=== PATIENT | female | born 1985 | race African-American/Black ===

== ENCOUNTER 2022-11-08 15:30 | Inpatient (IN) | payer BC ==
[~2022-11-08 15:30] MED LIST: Bupivacaine HCl 0.5%/Epinephrine 1:200,000/PF 30 ml Vial ONE
[2022-11-08 16:26] LABS: Fetal Membranes Rupture RUPTURE DETECTED (No Rupture)
[2022-11-08] MEDS ORDERED: Methylergonovine 0.2 MG/ML VIAL IM PRN (16:48)
[2022-11-08] MEDS ORDERED: hydrALAZINE 20 MG/ML VIAL SLOW IVP PRN (16:48)
[2022-11-08] MEDS ORDERED: Ibuprofen 800 MG TAB PO PRN (16:48)
[2022-11-08] MEDS ORDERED: Butorphanol Tartrate 1 MG/ML VIAL SLOW IVP PRN (16:48)
[2022-11-08] MEDS ORDERED: Ondansetron PF 4 MG/2 ML Vial IVP PRN (16:48)
[2022-11-08] MEDS ORDERED: Carboprost 250 MCG/ML AMP IM PRN (16:48)
[2022-11-08] MEDS ORDERED: Misoprostol 200 MCG TAB PR PRN (16:48)
[2022-11-08] MEDS ORDERED: Promethazine HCl 25 MG/ML VIAL IM PRN (16:48)
[2022-11-08] MEDS ORDERED: Lidocaine 1% (PF) 30 ML VIAL SC PRN (16:48)
[2022-11-08] MEDS ORDERED: NS w/ Oxytocin 30 units 500 ML IV SCH ×2 (17:00)
[2022-11-08] MEDS ORDERED: Betamet Acet/Betamet Na Ph 30 MG/5 ML VIAL ONE (17:58)
[2022-11-08] MEDS ORDERED: Betamet Acet/Betamet Na Ph 30 MG/5 ML VIAL IM SCH (18:00)
[2022-11-08 18:24] LABS: Hemoglobin 11.8 g/dL (12.0-15.5); Mean Corpuscular HGB CONC 33.9 g/dL (32.0-36.0); Mean Corpuscular Hemoglobin 24.9 pg (27.0-33.0); Mean Corpuscular Volume 73.4 fl (81.6-98.3); Mean Platelet Volume 11.4 fl (7.4-10.4); Platelet Count 315 10x3/uL (150-450); RBC Distribution Width 14.2 % (11.5-14.5); Red Blood Cell (RBC) Count 4.74 10x6/uL (3.90-5.03)
[2022-11-08 18:55] LABS: HBSAg Index 0.14 S/CO (0-0.99); Hep B Surf Ag Non-Reactive S/CO (NonReactive); Syphilis Antibody Nonreactive (Nonreactive); Syphilis Antibody Index 0.03 S/CO (<1.00 Non-Reactive)
[2022-11-08 19:06] VITALS: BMI 28.3
[2022-11-08 19:30] LABS: SARS-CoV-2 NAA Rapid Test Not Detected (NotDetected)
[2022-11-08] MEDS ORDERED: Penicillin G Potassium 5 MILL.UNITS in Sodium Chloride 0.9% 100 ML IVPB SCH (20:00)
[2022-11-08] MEDS ORDERED: Penicillin G Potassium 5 MILL.UNITS VIAL ONE (20:04)
[2022-11-08] MEDS: Lactated Ringer's 1,000 ML IV SCH (20:25)
[2022-11-09] MEDS ORDERED: Fentanyl 2 mcg/Bup 0.1% Cadd 100 ML ONE
[2022-11-09] MEDS ORDERED: Fentanyl 100 MCG/2 ML VIAL ONE (00:13)
[2022-11-09] MEDS ORDERED: Fentanyl 2 mcg/Bupivacaine 0.1% Cassette 100 ML EPIDURAL SCH (01:00)
[2022-11-09] MEDS ORDERED: Moisturizing Cream (Eucerin) 113 GM JAR TOP PRN (01:00)
[2022-11-09] MEDS ORDERED: Ondansetron PF 4 MG/2 ML Vial IVP PRN ×2 (01:00→03:09)
[2022-11-09] MEDS ORDERED: Acetaminophen 325 MG TAB PO PRN (01:00)
[2022-11-09] MEDS ORDERED: Promethazine HCl 25 MG/ML VIAL IM PRN (01:00)
[2022-11-09] MEDS ORDERED: Naloxone HCl 0.4 mg/ml Vial IVP PRN ×2 (01:00)
[2022-11-09] MEDS ORDERED: diphenhydrAMINE 50 MG/ML VIAL IVP PRN (01:00)
[2022-11-09] MEDS ORDERED: Communication Order-Pharmacy FS SCH (01:00)
[2022-11-09] MEDS ORDERED: ePHEDrine Sulfate 50 MG/10 ML VIAL SLOW IVP PRN (01:00)
[2022-11-09] MEDS ORDERED: Lactated Ringer's 500 ML IV PRN (01:00)
[2022-11-09] MEDS ORDERED: Magnesium Sulfate 20 gm/500 ml 20 GM/500 ML BAG ONE (01:12)
[2022-11-09] MEDS ORDERED: Labetalol HCl 100 MG/20 ML VIAL SLOW IVP PRN ×3 (01:28→03:09)
[2022-11-09] MEDS ORDERED: Calcium Gluc 4.6 MEQ/10 ML (100 MG/ML) SLOW IVP PRN ×2 (01:28→03:09)
[2022-11-09] MEDS ORDERED: Lorazepam 2 MG/ML VIAL SLOW IVP PRN ×2 (01:28→03:17)
[2022-11-09] MEDS: Penicillin G 2.5 MILL.units 2.5 MILL.UNITS in Premix Bag 1 BAG IVPB SCH ×3 (01:28→16:42)
[2022-11-09] MEDS ORDERED: hydrALAZINE 20 MG/ML VIAL SLOW IVP PRN ×5 (01:28→03:09)
[2022-11-09] MEDS ORDERED: Magnesium Sulfate 20 gm/500 ml 20 GM/500 ML BAG IVPB SCH ×2 (01:30→03:15)
[2022-11-09] MEDS ORDERED: Misoprostol 200 MCG TAB VAG PRN (03:09)
[2022-11-09] MEDS ORDERED: Milk Of Magnesia 30 ML UDCUP PO PRN (03:09)
[2022-11-09] MEDS ORDERED: Boostrix 0.5 ML (Tdap) VIAL (>/=7 yrs of age) IM ONE (03:09)
[2022-11-09] MEDS ORDERED: Benzocaine-Menthol 82.5 ML CAN TOP PRN (03:09)
[2022-11-09] MEDS ORDERED: diphenhydrAMINE 25 MG CAP PO PRN (03:09)
[2022-11-09] MEDS ORDERED: Lanolin Ointment 7 GM TUBE TOP PRN (03:09)
[2022-11-09] MEDS ORDERED: Preparation H Ointment 28 GM TUBE PR PRN (03:09)
[2022-11-09] MEDS ORDERED: Bisacodyl 10 MG SUPP PR PRN (03:09)
[2022-11-09] MEDS ORDERED: NS w/ Oxytocin 30 units 500 ML IV SCH (03:15)
[2022-11-09 03:54] LABS: Mean Corpuscular HGB CONC 33.8 g/dL (32.0-36.0); Mean Corpuscular Hemoglobin 24.8 pg (27.0-33.0); Mean Corpuscular Volume 73.4 fl (81.6-98.3); Mean Platelet Volume 11.9 fl (7.4-10.4); Platelet Count 300 10x3/uL (150-450); RBC Distribution Width 14.2 % (11.5-14.5); Red Blood Cell (RBC) Count 4.43 10x6/uL (3.90-5.03); White Blood Cell (WBC) Count 12.2 10x3/uL (3.5-10.5)
[2022-11-09] MEDS ORDERED: Labetalol HCl 200 MG TAB PO SCH (04:00)
[2022-11-09] MEDS: Ibuprofen 800 MG TAB PO SCH ×3 (06:34→21:26)
[2022-11-09] MEDS: Ferrous Sulfate 325 MG TAB PO SCH ×2 (16:33→19:20)
[2022-11-09] MEDS: Docusate 100 MG CAP PO SCH ×2 (16:33→21:27)
[2022-11-09] MEDS: Labetalol HCl 200 MG TAB PO SCH ×3 (16:33→21:27)
[2022-11-09] MEDS: Prenatal Vitamin 1 TAB PO SCH (16:38)
[2022-11-09] MEDS: Lactated Ringer's 1,000 ML IV SCH (16:40)
[2022-11-10] MEDS ORDERED: HYDROcodone/Acetaminophen 5/325 mg Tablet PO PRN ×2 (01:30)
[2022-11-10] MEDS ORDERED: Lorazepam 2 MG/ML VIAL SLOW IVP PRN (01:30)
[2022-11-10] MEDS ORDERED: Zolpidem Tartrate 5 MG TAB PO PRN (01:30)
[2022-11-10] MEDS: Ibuprofen 800 MG TAB PO SCH ×2 (05:37→14:12)
[2022-11-10] MEDS: Ferrous Sulfate 325 MG TAB PO SCH ×2 (08:15→14:58)
[2022-11-10] MEDS: Docusate 100 MG CAP PO SCH (08:16)
[2022-11-10] MEDS: Prenatal Vitamin 1 TAB PO SCH (08:16)
[2022-11-10] MEDS: Labetalol HCl 200 MG TAB PO SCH ×2 (08:16→14:12)
[2022-11-10 11:09] VITALS: TEMP 98.1
[2022-11-10 16:30] VITALS: BP 129/60
== END 2022-11-10 18:30 | disposition home or self-care (01) | DRG 807 ==
LOC: CSHLD/OP 15:30 → CSHLD 18:49 → CSHPP 11-09 16:25
PROVIDERS: ADMIT Obstetrics & Gynecology; ATTEND Obstetrics & Gynecology
PROC: 10E0XZZ Delivery of Products of Conception, External Approach (ICD-10-PCS; principal; 2022-11-09)
PROC: 3E033VJ Introduction of Other Hormone into Peripheral Vein, Percutaneous Approach (ICD-10-PCS; 2022-11-09)
DX: O42.013 Preterm premature rupture of membranes, onset of labor within 24 hours of rupture, third trimester (principal); Z37.0 Single live birth; Z20.822 Contact with and (suspected) exposure to COVID-19; Z3A.35 35 weeks gestation of pregnancy; Z86.16 Personal history of COVID-19; O99.284 Endocrine, nutritional and metabolic diseases complicating childbirth; E05.90 Thyrotoxicosis, unspecified without thyrotoxic crisis or storm; O70.0 First degree perineal laceration during delivery; O13.4 Gestational [pregnancy-induced] hypertension without significant proteinuria, complicating childbirth
CPT/HCPCS: 36415; 51702; 84112; 85027; 86780; 86850; 86900; 86901; 87340; 99285; J0360; J0702; J2540; J3475; J3490; J7120; U0002

== ENCOUNTER 2024-10-20 08:50 | Emergency (ER) | payer BC ==
[2024-10-20] MEDS ORDERED: Ketorolac Tromethamine 30 MG (1 mL) VIAL ONE (09:11)
== END 2024-10-20 10:40 | disposition home or self-care (01) ==
LOC: CSHERS 08:50
DX: M25.511 Pain in right shoulder (principal); Y04.0XXA Assault by unarmed brawl or fight, initial encounter
CPT/HCPCS: 96372; 99283; J1885

== ENCOUNTER 2024-10-31 14:20 | Outpatient (CLI) | payer BC | END 2024-10-31 14:21 | disposition home or self-care (01) | LOC: CSHMRI 14:20 | PROVIDERS: ATTEND Family Medicine | DX: M25.511 Pain in right shoulder (principal) ==